=== PATIENT | male | born 1965 | race Caucasian/White ===

== ENCOUNTER 2018-03-14 09:56 | Emergency (ER) | payer OTHER ==
[~2018-03-14] VITALS: Ht 182.9 cm; Wt 121.0 kg
[2018-03-14 10:00] VITALS: BP 162/98
[2018-03-14] MEDS ORDERED: LIDOCAINE-MPF 1%, 5ML ONE (10:19)
[2018-03-14] MEDS ORDERED: LIDOCAINE-MPF 1%, 5ML INFIL ONE (10:30)
[2018-03-14] MEDS ORDERED: BLOOD PRESSURE (10:45)
[2018-03-14] MEDS ORDERED: DIABETES MEDICATION (10:45)
[2018-03-14] MEDS ORDERED: BACITRACIN ZINC OINT 500U/GM, 0.9 GM ONE (12:09)
== END 2018-03-14 12:47 | disposition home or self-care (01) ==
LOC: ED 11:25
DX: S61.412A Laceration without foreign body of left hand, initial encounter (principal); S61.211A Laceration without foreign body of left index finger without damage to nail, initial encounter; X58.XXXA Exposure to other specified factors, initial encounter; Y93.89 Activity, other specified; Y92.009 Unspecified place in unspecified non-institutional (private) residence as the place of occurrence of the external cause; Y99.8 Other external cause status
CPT/HCPCS: 12002